=== PATIENT | male | born 1950 ===

== ENCOUNTER 2021-11-21 07:39 | Outpatient (RCR) | payer MEDICARE, SELFPAY ==
[2021-11-21 09:57] VITALS: BP 158/101; PULSE 126; RESP 22; TEMP 37.8; O2SAT 94
[2021-11-21 09:58] VITALS: BP 164/93; PULSE 126; O2SAT 95
[2021-11-21] MEDS: ACETAMINOPHEN 325 MG TABLET 650 MG PO (10:02)
[2021-11-21] MEDS: diphenhydrAMINE HCl CAP 25 MG CAPSULE PO (10:02)
[2021-11-21] MEDS: FAMOTIDINE 20 MG TABLET PO (10:03)
[2021-11-21 11:28] VITALS: BP 124/83; PULSE 117; O2SAT 94
== END 2021-11-21 17:00 ==
LOC: AMCINF 07:39
PROVIDERS: PCP Nurse Practitioner Family; Visit Provider Internal Medicine Hematology & Oncology
DX: U07.1 COVID-19 (principal); E11.9 Type 2 diabetes mellitus without complications; I10 Essential (primary) hypertension; J44.9 Chronic obstructive pulmonary disease, unspecified
CPT/HCPCS: A9270; M0245; Q0245